=== PATIENT | female | born 1955 | race Caucasian/White ===

== ENCOUNTER 2020-01-30 10:20 | Emergency (ER) | payer SELFPAY ==
[2020-01-30 10:24] VITALS: TEMP 98.4; BMI 32.9
--- NOTE | 2020-01-30 10:48 | PDOC ---
Attending Attestation - Resident Resident Name: JamshidAngelIlya - ED Attending Attestation I have performed the following: I have examined & evaluated the patient, The case was reviewed & discussed with the resident, I agree w/resident's findings & plan, Exceptions are as noted - HPI HPI: 01/30/20 13:18 64 years old with chronic intermittent abdominal discomfort worse over the last 3 days presents to the emergency department. No fever no chills no nausea no vomiting no diarrhea symptoms are mild to moderate lower abdomen persistent constant worsening over the last 3 days - Physicial Exam PE: 01/30/20 13:19 Vitals: Triage Vital signs reviewed General Appearance: No acute distress, well nourished well developed, Head: Atraumatic, Cardiac: Regular rate and rhythym, no murmurs, no rubs, no gallops, Lungs: Clear to auscultation bilateral, good air movement bilaterally, Abdomen: Soft, non distended, normal bowel sounds, non tender to palpation Extremities: Full range of motion to all extremities, no cyanosis, clubbing, or edema Psych: Normal mood, normal affect - Medical Decision Making 01/30/20 13:19 64 years old chronic lower abdominal pain acutely worse over the last 3 days we will check labs CAT scan observe and reassess CAT scan demonstrates no acute pathology labs within normal limits patient will follow-up with GI and surgery next week for cholelithiasis Findings, the need for follow-up and strict return instructions discussed with patient. Discharge - Discharge Information Problems reviewed: Yes Clinical Impression/Diagnosis: Abdominal pain Qualifiers: Abdominal location: lower abdomen, unspecified Qualified Code(s): R10.30 - Lower abdominal pain, unspecified Condition: Good - Follow up/Referral Referrals: Andrey Burden MD [Staff Physician] - Bharath Sumner MD [Staff Physician] - Allen Evans MD [Primary Care Provider] - - Patient Discharge Instructions Patient Printed Discharge Instructions: DI for Abdominal Pain-Adult Additional Instructions: You were seen in the Emergency Department for abdominal pain and bloating. You received labs and CT scan. Your labs were normal and your CT scan confirmed the presence of gallstones which you were previously aware. Otherwise your CT did not reveal any emergent findings, You were considered medically stable and safe to return home. Please follow up with Dr. Burden of general surgery to discuss your gallstones and Dr Sumner of Gastroenterology regarding your abdominal pain. Please return to the emergency department if you experience a worsening of your symptoms or any of the following chest pain, shortness of breath, fever, chills, vomitting w/ or w/o blood, blood in stool or urine, - Post Discharge Activity
[2020-01-30 10:50] LABS: EPITHELIAL CELLS FEW /hpf
--- NOTE | 2020-01-30 11:07 | PDOC ---
History of Present Illness - General Chief Complaint: Pain, Acute Stated Complaint: lower abd pain Time Seen by Provider: 01/30/20 10:25 - History of Present Illness Initial Comments: 64 YOF h/o unspecified dysrythmia, ureteral polyp, osteoporosis presents with abdominal pain of 4 days duration. Pain is 7/10, located in band like distribution across lower abdomen, no radiation, eating improves sx temporarily. She reports a recent bout of diarrhea this AM. She mentions that she recently started a dietary supplement, recommended by her GI doc prior to the onset of her current symptoms. She also mentions that in august she had a similar episode of abdominal pain, she received abdominal CT, and ultrasound both of which demonstrated no clear etiology for her sx. Shortly after her sx resolved until they returned with greater intensity 4 days ago. She denies CP, SOB, N/V, fever or chills. She was diagnosed with COVID in late july which has since resolved. Past History - Medical History Allergies/Adverse Reactions: Allergies Allergy/AdvReac Type Severity Reaction Status Date / Time methimazole Allergy Verified 01/30/20 10:21 Home Medications: Ambulatory Orders Metoprolol Succinate 50 mg PO DAILY 06/14/14 COPD: Yes Disorders: Yes (gerd,diverticulosis,) HTN: Yes Hypercholesterolemia: Yes Thyroid Disease: Yes (hyperthyroId) - Reproductive History Is Patient Now?: No - Immunization History Immunization Up to Date: Yes - Psycho-Social/Smoking History Smoking Status: No Smoking History: Never smoked Have you smoked in the past 12 months: No Number of Cigarettes Smoked Daily: 0 - Substance Abuse Hx (Audit-C & DAST Scrn) How often the patient has a drink containing alcohol: Never Score: In Men: 4 or > Positive; In Women: 3 or > Positive: 0 Screen Result (Pos requires Nsg. Audit-10AR): Negative In the last yr the pt used illegal drug/Rx for NonMed reason: No Score: Yes response is considered Positive: 0 Screen Result (Positive result requires Nsg. DAST-10): Negative Review of Systems - Review of Systems Constitutional: Yes: See HPI HEENTM: Yes: See HPI Respiratory: Yes: See HPI Cardiac (ROS): Yes: See HPI ABD/GI: Yes: See HPI : Yes: See HPI Musculoskeletal: Yes: See HPI Integumentary: Yes: See HPI Neurological: Yes: See HPI Endocrine: Yes: See HPI Hematologic/Lymphatic: Yes: See HPI *Physical Exam - Vital Signs Last Vital Signs Temp Pulse Resp BP Pulse Ox 98.4 F 84 18 171/84 H 100 01/30/20 10:21 01/30/20 10:21 01/30/20 10:21 01/30/20 10:21 01/30/20 10:21 - Physical Exam General Appearance: Yes: Nourished, Appropriately Dressed HEENT: positive: EOMI, MAXIM, Normal ENT Inspection, Normal Voice Neck: positive: Trachea midline, Normal Thyroid Respiratory/Chest: positive: Lungs Clear, Normal Breath Sounds Cardiovascular: positive: Regular Rhythm, Regular Rate, S1, S2 Gastrointestinal/Abdominal: positive: Normal Bowel Sounds, Tender, Flat, Soft, Tenderness Musculoskeletal: positive: Normal Inspection Extremity: positive: Normal Capillary Refill Integumentary: positive: Normal Color, Dry, Warm ED Treatment Course - LABORATORY CBC & Chemistry Diagram: 01/30/20 11:28 01/30/20 11:28 - ADDITIONAL ORDERS Additional order review: Laboratory Results 01/30/20 10:25 Urine Color Yellow Urine Appearance Clear Urine pH 6.5 Urine Protein Negative Urine Glucose (UA) Negative Urine Ketones Negative Urine Blood 1+ H Urine Nitrite Negative Urine Bilirubin Negative Urine Urobilinogen 0.2 Ur Leukocyte Esterase Negative Medical Decision Making - Medical Decision Making 64 YOF h/o dysrythmia presents with lower abdominal pain of increasing severity - previous episode of similar sx, farrell negative, resolved, worse now than previous - TTP in lower abdomen - CBC, CMP, lipase, CT abdomen w/ IV contrast 01/30/20 13:08 - labs wnl, CT no acute changes - will dc with f/u for surgery and GI Discharge - Discharge Information Problems reviewed: Yes Clinical Impression/Diagnosis: Abdominal pain Condition: Good - Admission No - Follow up/Referral Referrals: Allen Evans MD [Primary Care Provider] - Andrey Burden MD [Staff Physician] - Bharath Sumner MD [Staff Physician] - - Patient Discharge Instructions Patient Printed Discharge Instructions: DI for Abdominal Pain-Adult Additional Instructions: You were seen in the Emergency Department for abdominal pain and bloating. You received labs and CT scan. Your labs were normal and your CT scan confirmed the presence of gallstones which you were previously aware. Otherwise your CT did not reveal any emergent findings, You were considered medically stable and safe to return home. Please follow up with Dr. Burden of general surgery to discuss your gallstones and Dr Sumner of Gastroenterology regarding your abdominal pain. Please return to the emergency department if you experience a worsening of your symptoms or any of the following chest pain, shortness of breath, fever, chills, vomitting w/ or w/o blood, blood in stool or urine, - Post Discharge Activity
[2020-01-30] MEDS ORDERED: ACETAMINOPHEN 1000 MG/100 ML VIAL (NON FORMULARY) IVPB ONE (11:22)
[2020-01-30] MEDS ORDERED: ACETAMINOPHEN INJECTION 100 ML IVPB ONE (11:35)
[2020-01-30 11:38] LABS: BASO % 0.3 % (0-2.0); HEMATOCRIT 42.1 % (32.4-45.2); HEMOGLOBIN 14.1 GM/dl (10.7-15.3); LYMPH % 21.2 % (8-40); MCH 28.4 pg (25.7-33.7); MCHC 33.5 g/dl (32.0-36.0); MEAN CELL VOLUME 84.8 fl (80-96); MEAN PLT VOLUME 7.8 fl (7.5-11.1); MONO % 5.2 % (3.8-10.2); NEUT % 72.3 % (42.8-82.8); PLATELET COUNT 224 K/MM3 (134-434); RBC 4.97 M/mm3 (3.60-5.2); RDW 12.2 % (11.6-15.6); WHITE BLOOD COUNT 7.5 K/mm3 (4.0-10.8)
[2020-01-30 11:49] LABS: ALBUMIN 4.2 g/dl (3.4-5.0); BILIRUBIN,TOTAL 0.6 mg/dl (0.2-1); CALCIUM 8.6 mg/dl (8.5-10); CREATININE 0.6 mg/dl (0.55-1.3); POTASSIUM 3.9 mmol/L (3.5-5.1); TOT PROT 7.3 g/dl (6.4-8.2)
[2020-01-30 12:47] VITALS: BP 135/65; PULSE 59
--- NOTE | 2020-02-01 11:42 | EKG ---
Test Reason : Blood Pressure : / mmHG Vent. Rate : 060 BPM Atrial Rate : 060 BPM P-R Int : 118 ms QRS Dur : 074 ms QT Int : 422 ms P-R-T Axes : 031 022 026 degrees QTc Int : 422 ms NORMAL SINUS RHYTHM NORMAL ECG WHEN COMPARED WITH ECG OF 11-FEB-2016 20:34, VENT. RATE HAS DECREASED BY 31 BPM Confirmed by EMERY CLARK MD ([id number]) on 02/01/2020 11:41:48 AM Referred By: CELIA Confirmed By:EMERY CLARK MD
== END 2020-01-30 13:21 ==
LOC: FER 10:20
PROC: 3E033NZ Introduction of Analgesics, Hypnotics, Sedatives into Peripheral Vein, Percutaneous Approach (ICD-10-PCS; principal; 2020-01-30)
DX: R10.9 Unspecified abdominal pain (principal)
CPT/HCPCS: 36415; 74177-TC; 80053; 81003; 81015; 83690; 85025; 93005; 99285-25; J0131; Q9967

== ENCOUNTER 2023-06-26 12:52 | Emergency (ER) | payer OTHER, BC ==
[2023-06-26] MEDS ORDERED: METHOCARBAMOL 500 MG TABLET ONE (14:32)
[2023-06-26] MEDS ORDERED: KETOROLAC TROMETHAMINE 30 MG/1 ML VIAL ONE (14:33)
[2023-06-26] MEDS ORDERED: LIDOCAINE 5% TOPICAL PATCH ONE (14:33)
[2023-06-26] MEDS: LIDOCAINE 5% TOPICAL PATCH TP ONE (14:42)
[2023-06-26] MEDS: METHOCARBAMOL 500 MG TABLET PO ONE (14:43)
[2023-06-26] MEDS: KETOROLAC TROMETHAMINE 30 MG/1 ML VIAL IM ONE (14:43)
[2023-06-26 15:13] VITALS: BP 111/49; PULSE 58; RESP 16; TEMP 98.8; BMI 34.5
[2023-06-26 15:19] LABS: EPITHELIAL CELLS 0-5 /hpf
[2023-06-26] MEDS ORDERED: LIDOCAINE PATCH REMOVAL MC ONE (22:00)
== END 2023-06-26 15:31 | disposition home or self-care (01) ==
LOC: FER 12:52
PROC: 3E0233Z Introduction of Anti-inflammatory into Muscle, Percutaneous Approach (ICD-10-PCS; principal; 2023-06-26)
DX: M54.50 Low back pain, unspecified (principal); M79.651 Pain in right thigh
CPT/HCPCS: 81003; 81015; 87086; 99284-25